=== PATIENT | female | born 1975 | race Caucasian/White ===

== ENCOUNTER 2017-04-27 14:04 | Emergency (ER) | payer MEDICAID ==
[~2017-04-27] VITALS: Ht 162.6 cm; Wt 54.5 kg
[2017-04-27 14:15] VITALS: Ht 162.6 cm; Wt 54.5 kg
[2017-04-27 15:01] LABS: BASOPHILS % 0.3 % (0.0-2.0); EOSINOPHILS # 0.2 10^3/ul (0.0-0.5); EOSINOPHILS % 1.3 % (0.0-7.0); HEMATOCRIT 34.1 % (37.0-47.0); HEMOGLOBIN 11.5 g/dl (12.0-16.0); LYMPHOCYTES # 1.9 10^3/ul (0.8-2.9); LYMPHOCYTES % 16.7 % (15.0-51.0); MEAN CORPUSCULAR HEMOGLOBIN 30.6 pg (29.0-33.0); MEAN CORPUSCULAR HGB CONC 33.7 g/dl (32.0-37.0); MEAN CORPUSCULAR VOLUME 90.7 fl (82.0-101.0); MEAN PLATELET VOLUME 9.5 fl (7.4-10.4); MONOCYTE # 0.8 10^3/ul (0.3-0.9); MONOCYTES % 6.8 % (0.0-11.0); NEUTROPHIL # 8.5 10^3/ul (1.6-7.5); NEUTROPHILS % 74.4 % (39.0-77.0); PLATELET COUNT 362 10^3/UL (140-415); RED BLOOD COUNT 3.76 10^6/ul (4.20-5.40); RED CELL DISTRIBUTION WIDTH 12.6 % (11.5-14.5); WHITE BLOOD COUNT 11.4 10^3/ul (4.8-10.8)
[2017-04-27 15:22] LABS: ADD UMIC YES; UR ASCORBIC ACID NEGATIVE (NEGATIVE); UR BACTERIA FEW /HPF (NONE SEEN); UR BILIRUBIN (Dip) NEGATIVE (NEGATIVE); UR BLOOD (Dip) 3+ mg/dL (NEGATIVE); UR CLARITY CLEAR (CLEAR); UR COLOR STRAW (YELLOW); UR GLUCOSE (Dip) NEGATIVE (NEGATIVE); UR KETONES (Dip) NEGATIVE (NEGATIVE); UR LEUKOCYTE ESTERASE (Dip) NEGATIVE Leu/ul (NEGATIVE); UR NITRITE (Dip) NEGATIVE (NEGATIVE); UR RBC 3 /HPF (0-5); UR SPECIFIC GRAVITY (Dip) 1.004 (1.003-1.030); UR TOTAL PROTEIN (Dip) NEGATIVE (NEGATIVE); UR UROBILINOGEN (Dip) NEGATIVE (NEGATIVE)
--- NOTE | 2017-04-27 15:47 | RADRPT ---
PROCEDURE: US OB. CLINICAL INDICATION: Vaginal bleeding. TECHNIQUE: Transabdominal views of the pelvis are available for review. COMPARISON: No prior studies are available for comparison. FINDINGS: The patient's last menstrual period is 02/12/2017. There is a single, live intrauterine demonstrated: [place]-rump length: 6.3 cm heart rate: 166 bpm Ultrasound estimated gestational age: 12 weeks and 5 days. Estimated date of delivery 11/04/2017. Within the uterine fundus, there is a complex mass with peripheral vascularity measuring 12.7 x 11.6 x 11.8 cm with internal cystic areas. Placenta appears anteriorly located without evidence of abruption or previa. The right ovary not identified. The left ovary measures 3.9 x 1.9 x 2.8 cm and demonstrates normal Doppler flow. There is no free fluid. IMPRESSION: 1. Single live intrauterine with an estimated gestational age of 12 weeks and 5 days. 2. Complex mass within the uterine fundus measuring 12.7 x 11.6 x 11.8 cm with internal cystic areas . Findings may represent a degenerating fibroid with internal necrosis. Recommend comparison to prio rs if available and attention on follow-up imaging. RPTAT: AAEE Physician Manda Date Time Electronically viewed and signed by Physician Manda on 04/27/2017 15:47 PH/
[2017-04-27] MEDS ORDERED: ACET500C5 PO (16:46)
--- NOTE | 2017-04-27 16:52 | ERD ---
ER Documentation Chief Complaint Chief Complaint Pt with heavy VB started today, 3 months . HPI This 42-year-old female presents with vaginal bleeding starting today. She has minimal cramping. Clots. She is approximately 3 months by dates. She is a G4 para 1. ROS All systems reviewed and are negative except as per history of present illness. Medications Home Meds Active Scripts Acetaminophen* (Tylophen*) 500 Mg Capsule, 1 CAP PO Q6H Y for PAIN AND OR ELEVATED TEMP, #15 CAP Prov:AKILAH BENNETT MD 04/27/17 PMhx/Soc History of Surgery: No Anesthesia Reaction: No Hx Neurological Disorder: No Hx Respiratory Disorders: No Hx Cardiac Disorders: No Hx Psychiatric Problems: No Hx Miscellaneous Medical Probl: No Hx Alcohol Use: No Hx Substance Use: No Hx Tobacco Use: No Smoking Status: Never smoker Physical Exam Vitals Vital Signs Date Time Temp Pulse Resp B/P Pulse Ox O2 Delivery O2 Flow Rate FiO2 04/27/17 14:15 99.2 109 18 129/92 100 Physical Exam Const: [], [id number]. Head: Atraumatic Eyes: Normal Conjunctiva ENT: Normal External Ears, Nose and Mouth. Neck: Full range of motion..~ No meningismus. Resp: Clear to auscultation bilaterally Cardio: Regular rate and rhythm, no murmurs Abd: Soft, non tender, non distended. Normal bowel sounds Skin: No petechiae or rashes Back: No midline or flank tenderness Ext: No cyanosis, or edema Neur: Awake and alert Psych: Normal Mood and Affect Result Diagram: 04/27/17 1444 Results 24 hrs Laboratory Tests Test 04/27/17 14:44 04/27/17 14:47 White Blood Count 11.410^3/ul Red Blood Count 3.7610^6/ul Hemoglobin 11.5g/dl Hematocrit 34.1% Mean Corpuscular Volume 90.7fl Mean Corpuscular Hemoglobin 30.6pg Mean Corpuscular Hemoglobin Concent 33.7g/dl Red Cell Distribution Width 12.6% Platelet Count 46492^3/UL Mean Platelet Volume 9.5fl Neutrophils % 74.4% Lymphocytes % 16.7% Monocytes % 6.8% Eosinophils % 1.3% Basophils % 0.3% Nucleated Red Blood Cells % 0.0/100WBC Neutrophils # 8.510^3/ul Lymphocytes # 1.910^3/ul Monocytes # 0.810^3/ul Eosinophils # 0.210^3/ul Basophils # 0.010^3/ul Nucleated Red Blood Cells # 0.010^3/ul Beta HCG, Quantitative 169586.0mIU/ml Urine Color STRAW Urine Clarity CLEAR Urine pH 8.0 Urine Specific [place] 1.004 Urine Ketones NEGATIVEmg/dL Urine Nitrite NEGATIVEmg/dL Urine Bilirubin NEGATIVEmg/dL Urine Urobilinogen NEGATIVEmg/dL Urine Leukocyte Esterase NEGATIVELeu/ul Urine Microscopic RBC 3/HPF Urine Microscopic WBC 1/HPF Urine Bacteria FEW/HPF Urine Hemoglobin 3+mg/dL Urine Glucose NEGATIVEmg/dL Urine Total Protein NEGATIVEmg/dl Procedures/MDM Pelvic ultrasound shows a normal-appearing 12 week intrauterine with positive heart tones no evidence of adnexal . She has a lesion in the fundus of the uterus which may be necrotic fibroma per the radiologist. Follow-up recommended. Patient was advised of this finding and the ultrasound she confirmed that this was pre-existing and she is aware there is a " fibroma" per her OB. Patient was stable and amatory throughout the ED course. Patient is Rh+ urine shows no significant signs of infection acute abnormalities. There is minimal anemia and white blood cell count of 11. There is no current evidence of ectopic but patient is advised to follow-up with PCP this week. Signs or symptoms do not suggest appendicitis, acute abdomen, hemorrhaging. Patient is advised to recheck for worsening bleeding, pain, fevers, new worsening symptoms or primary care doctor this week. The patient was stable with no new complaints during the ER course. Clinically, there is no current evidence to suggest meningitis, sepsis, acute abdomen, pneumonia, acute coronary syndrome, pulmonary embolism, or any other emergent condition appearing to require further evaluation or hospitalization. The patient should certainly return for any new or worsening symptoms per the aftercare instructions. They should otherwise follow-up with her primary care doctor for reevaluation this week. Departure Diagnosis: Primary Impression: Vaginal bleeding in patient at less than 20 weeks ges... Condition: Stable Patient Instructions: Bleeding During Early Additional Instructions: Cheque otro vez con khan doctor primario en el proximo pierre or regresa para mas o nueva simptomas. emabarazo normal, gregorio [place] un fibroma probablamente. AKILAH BENNETT MD Apr 27, 2017 16:52
== END 2017-04-27 16:57 | disposition home or self-care (01) ==
LOC: FTE 14:04
DX: O20.9 Hemorrhage in early pregnancy, unspecified (principal); R10.2 Pelvic and perineal pain; Z3A.12 12 weeks gestation of pregnancy
CPT/HCPCS: 36415; 76801; 81001; 84702; 85025; 86900; 86901; Z7502

== ENCOUNTER 2017-08-03 15:17 | Outpatient (CLI) | END 2017-08-03 20:22 | disposition home or self-care (01) ==

== ENCOUNTER → 2017-08-23 08:06 | Emergency (ER) | END | disposition left against medical advice (07) ==

== ENCOUNTER 2017-10-26 10:21 | Inpatient (IN) | END 2017-10-29 17:10 | disposition home or self-care (01) | DRG 775 ==